=== PATIENT | male | born 1990 | race Two or more races ===

== ENCOUNTER 2018-07-12 19:23 | Emergency (ER) | payer OTHER ==
[~2018-07-12] VITALS: Ht 175.3 cm; Wt 83.9 kg
[2018-07-12 19:26] VITALS: BP 150/95
[2018-07-12] MEDS ORDERED: DIPHENHYDRAMINE 50 MG CAPSULE ONE (19:52)
[2018-07-12] MEDS ORDERED: DIPHENHYDRAMINE 25 MG CAPSULE PO ONE (20:00)
== END 2018-07-12 20:00 | disposition home or self-care (01) ==
LOC: ED 19:54
DX: L50.9 Urticaria, unspecified (principal)
CPT/HCPCS: 99283; J7512; Q0163